=== PATIENT | male | born 1985 | race Caucasian/White ===

== ENCOUNTER 2022-01-21 07:08 | Emergency (ER) | payer OTHER ==
[2022-01-21 07:15] VITALS: BP 140/95; PULSE 83; RESP 18; TEMP 98.7; BMI 29.0
[2022-01-21] MEDS ORDERED: DIPHTH,PERTUSS(ACELL),TET 0.5 ML DISP.SYRIN IM ONE ×2 (07:17→07:32)
== END 2022-01-21 07:41 | disposition home or self-care (01) ==
LOC: FER 07:08
PROC: 3E0234Z Introduction of Serum, Toxoid and Vaccine into Muscle, Percutaneous Approach (ICD-10-PCS; principal; 2022-01-21)
DX: S60.419A Abrasion of unspecified finger, initial encounter (principal)
CPT/HCPCS: 90715; 99283-25

== ENCOUNTER 2023-07-17 03:10 | Emergency (ER) | payer OTHER ==
[2023-07-17 03:26] VITALS: BP 148/103; PULSE 86; RESP 17; TEMP 98.8; BMI 28.2
== END 2023-07-17 03:41 | disposition home or self-care (01) ==
LOC: FER 03:10
DX: M25.562 Pain in left knee (principal); Y93.72 Activity, wrestling
CPT/HCPCS: 99283-25